=== PATIENT | female | born 1975 | race African-American/Black ===

== ENCOUNTER 2020-11-17 12:58 | Emergency (ER) | payer OTHER ==
[2020-11-17 13:07] VITALS: BP 164/96; PULSE 72; BMI 23.1
== END 2020-11-17 16:22 | disposition home or self-care (01) ==
LOC: JER 12:58
DX: R07.9 Chest pain, unspecified (principal)
CPT/HCPCS: 93005; 93010; 99285-25

== ENCOUNTER 2021-07-18 21:32 | Emergency (ER) | payer OTHER ==
[2021-07-18 21:40] VITALS: BMI 23.1
[2021-07-18] MEDS ORDERED: SODIUM CHLORIDE 1,000 ML IV STA (22:06)
[2021-07-18 22:45] LABS: BASO % 0.5 % (0-2.0); EOS % 0.5 % (0-4.5); HEMATOCRIT 27.6 % (32.4-45.2); HEMOGLOBIN 8.9 GM/dL (10.7-15.3); LYMPH % 25.2 % (8-40); MCH 24.6 pg (25.7-33.7); MCHC 32.3 g/dl (32.0-36.0); MEAN PLT VOLUME 8.4 fl (7.5-11.1); MONO % 6.9 % (3.8-10.2); NEUT % 66.9 % (42.8-82.8); PLATELET COUNT 160 10^3/uL (134-434); RBC 3.64 M/mm3 (3.60-5.2); RDW 13.9 % (11.6-15.6); WHITE BLOOD COUNT 10.4 K/mm3 (4.0-10.0)
[2021-07-18 22:51] LABS: EPI CELLS >36 /uL (0-25.1); HYALINE CASTS 15 /uL (0-3.1); PH,URINE 5.5 (5.0-8.0); URINE APPEARANCE TURBID; URINE BACTERIA 1919 /uL (0-1359); URINE BILIRUBIN NEGATIVE (NEGATIVE); URINE COLOR YELLOW; URINE GLUCOSE (UA) 1+ (NEGATIVE); URINE KETONE NEGATIVE (NEGATIVE); URINE LEUK ESTERASE NEGATIVE (NEGATIVE); URINE NITRITE NEGATIVE (NEGATIVE); URINE PROTEIN 1+ (NEGATIVE); URINE RBC 27 /uL (0-23.9); URINE WBC 25 /uL (0-25.8)
[2021-07-18 22:52] LABS: HCG,QUALITATIVE URINE Negative
[2021-07-18 22:53] LABS: INR 0.98 (0.83-1.09); PROTHROMBIN TIME (PATIENT) 11.9 SEC (9.7-13.0)
[2021-07-18 22:55] LABS: ACTIVATED PTT 27.3 SECONDS (25.2-36.5)
[2021-07-18 23:03] VITALS: TEMP 99
[2021-07-18 23:06] LABS: CHLORIDE 106 mmol/L (98-107); SODIUM 139 mmol/L (136-145)
[2021-07-18 23:07] LABS: CALCIUM 7.8 mg/dL (8.5-10.1)
[2021-07-18 23:08] LABS: ALBUMIN 2.8 g/dl (3.4-5.0); ANION GAP 9 MMOL/L (8-16); BLOOD UREA NITROGEN 12.5 mg/dL (7-18); CO2 23 mmol/L (21-32); MAGNESIUM 1.7 mg/dL (1.8-2.4)
[2021-07-18 23:11] LABS: SGOT/AST 23 U/L (15-37); SGPT/ALT 22 U/L (13-61)
[2021-07-18 23:12] LABS: GLUCOSE,RANDOM 146 mg/dL (74-106)
[2021-07-18 23:13] LABS: BILIRUBIN,TOTAL 0.2 mg/dL (0.2-1); TOT PROT 5.8 g/dl (6.4-8.2)
[2021-07-18 23:14] LABS: ALK PHOS 58 U/L (45-117)
[2021-07-18 23:22] LABS: LACTIC ACID 3.4 mmol/L (0.4-2.0)
[2021-07-18] MEDS ORDERED: SODIUM CHLORIDE 0.9% 500 ML INFUS.BAG IV ONE (23:53)
[2021-07-19 01:31] VITALS: PULSE 86
[2021-07-19 02:17] VITALS: BP 123/77
[2021-07-19 03:10] LABS: PH,URINE 6.5 (5.0-8.0); URINE APPEARANCE CLEAR; URINE BILIRUBIN NEGATIVE (NEGATIVE); URINE COLOR YELLOW; URINE GLUCOSE (UA) NEGATIVE (NEGATIVE); URINE KETONE TRACE (NEGATIVE); URINE LEUK ESTERASE NEGATIVE (NEGATIVE); URINE NITRITE NEGATIVE (NEGATIVE); URINE PROTEIN NEGATIVE (NEGATIVE); URINE UROBILINOGEN 0.2 mg/dL (0.2-1.0)
[2021-07-19 09:34] LABS: URINE CRYSTALS NEGATIVE /hpf
[2021-07-19 09:35] LABS: YEAST NEGATIVE (NEGATIVE)
== END 2021-07-19 04:24 | disposition home or self-care (01) ==
LOC: JER 21:32
PROC: 3E0337Z Introduction of Electrolytic and Water Balance Substance into Peripheral Vein, Percutaneous Approach (ICD-10-PCS; principal; 2021-07-18)
DX: T81.89XA Other complications of procedures, not elsewhere classified, initial encounter (principal); I95.9 Hypotension, unspecified
CPT/HCPCS: 36415; 74177-TC; 80053; 81003; 82550; 82962; 83605; 83735; 84484; 84703; 85025; 85610; 85730; 93005; 93010; 99285-25; C9803; U0003; U0005

== ENCOUNTER 2023-06-04 22:25 | Emergency (ER) | payer OTHER ==
[2023-06-04 22:33] VITALS: BP 126/93; PULSE 75; RESP 18; TEMP 98.4; BMI 25.7
[2023-06-04] MEDS ORDERED: SODIUM CHLORIDE 0.9% 500 ML INFUS.BAG IV ONE (22:49)
[2023-06-04 23:12] LABS: EOS % 1.8 % (0-4.5); HEMATOCRIT 36.3 % (32.4-45.2); HEMOGLOBIN 11.2 GM/dL (10.7-15.3); LYMPH % 47.5 % (8-40); MCH 23.6 pg (25.7-33.7); MCHC 30.9 g/dl (32.0-36.0); MEAN CELL VOLUME 76.5 fl (80-96); MEAN PLT VOLUME 8.9 fl (7.5-11.1); MONO % 5.8 % (3.8-10.2); NEUT % 43.9 % (42.8-82.8); PLATELET COUNT 164 10^3/uL (134-434); RBC 4.74 M/mm3 (3.60-5.2); RDW 13.9 % (11.6-15.6)
[2023-06-04 23:31] LABS: POTASSIUM 5.1 mmol/L (3.5-5.1)
[2023-06-04 23:32] LABS: CALCIUM 8.7 mg/dL (8.5-10.1)
[2023-06-04 23:33] LABS: ALBUMIN 3.6 g/dl (3.4-5.0); BLOOD UREA NITROGEN 17.2 mg/dL (7-18)
[2023-06-04 23:37] LABS: PHOSPHOROUS 3.6 mg/dL (2.5-4.9)
[2023-06-04 23:39] LABS: BILIRUBIN,TOTAL 0.3 mg/dL (0.2-1)
== END 2023-06-05 01:53 | disposition home or self-care (01) ==
LOC: JER 22:25
DX: R55 Syncope and collapse (principal); R23.2 Flushing; R42 Dizziness and giddiness; Z20.822 Contact with and (suspected) exposure to COVID-19
CPT/HCPCS: 0241U-QW; 36415; 71046-TC-FY; 80053; 83735; 84100; 84484; 85025; 93005; 93010; 99285-25

== ENCOUNTER 2023-06-05 20:00 | Emergency (ER) | payer OTHER ==
[2023-06-05 20:12] VITALS: BP 144/101; PULSE 58; RESP 16; TEMP 98.3; BMI 26.1
[2023-06-05] MEDS ORDERED: METOCLOPRAMIDE HCL INJECTION 10 MG/2 ML VIAL IVPUSH ONE (21:27)
[2023-06-05] MEDS ORDERED: SODIUM CHLORIDE 0.9% 500 ML INFUS.BAG IV ONE (21:27)
[2023-06-05] MEDS ORDERED: METOCLOPRAMIDE HCL INJECTION 10 MG/2 ML VIAL ONE (21:46)
[2023-06-05 22:11] LABS: BASO % 0.5 % (0-2.0); EOS % 0.8 % (0-4.5); HEMATOCRIT 33.1 % (32.4-45.2); HEMOGLOBIN 10.5 GM/dL (10.7-15.3); LYMPH % 26.8 % (8-40); MCH 23.7 pg (25.7-33.7); MCHC 31.8 g/dl (32.0-36.0); MEAN CELL VOLUME 74.4 fl (80-96); MEAN PLT VOLUME 8.2 fl (7.5-11.1); NEUT % 65.9 % (42.8-82.8); PLATELET COUNT 149 10^3/uL (134-434); RBC 4.45 M/mm3 (3.60-5.2); RDW 14.1 % (11.6-15.6); WHITE BLOOD COUNT 6.9 K/mm3 (4.0-10.0)
[2023-06-05 22:46] LABS: POTASSIUM 4.1 mmol/L (3.5-5.1)
[2023-06-05 22:49] LABS: ALBUMIN 3.6 g/dl (3.4-5.0); CALCIUM 8.9 mg/dL (8.5-10.1)
[2023-06-05 22:50] LABS: BLOOD UREA NITROGEN 15.3 mg/dL (7-18); MAGNESIUM 2.1 mg/dL (1.8-2.4)
[2023-06-05 22:52] LABS: CREATININE 0.9 mg/dL (0.55-1.3)
[2023-06-05 22:54] LABS: BILIRUBIN,TOTAL 0.3 mg/dL (0.2-1); TOT PROT 6.7 g/dl (6.4-8.2)
== END 2023-06-06 01:01 | disposition home or self-care (01) ==
LOC: JER 20:00
PROC: 3E033GC Introduction of Other Therapeutic Substance into Peripheral Vein, Percutaneous Approach (ICD-10-PCS; principal; 2023-06-05)
DX: R51.9 Headache, unspecified (principal); R55 Syncope and collapse; R42 Dizziness and giddiness; R00.2 Palpitations
CPT/HCPCS: 36415; 70450-TC; 80053; 83690; 83735; 84100; 84484; 84703; 85025; 85379; 93005; 93010; 99285-25

== ENCOUNTER 2023-11-29 12:55 | Emergency (ER) | payer OTHER ==
[2023-11-29 13:08] VITALS: BP 177/97; PULSE 66; RESP 16; TEMP 98.2; BMI 26.6
[2023-11-29] MEDS ORDERED: ACETAMINOPHEN 325 MG TABLET (FP) ONE (14:37)
[2023-11-29] MEDS: ACETAMINOPHEN 500 MG TABLET (FP) PO ONE (14:44)
== END 2023-11-29 15:03 | disposition home or self-care (01) ==
LOC: JER 12:55
DX: R51.9 Headache, unspecified (principal); I10 Essential (primary) hypertension
CPT/HCPCS: 99283-25